=== PATIENT | female | born 1990 ===

== ENCOUNTER 2021-08-01 09:37 | Outpatient (CLI) | payer OTHER | END 2021-08-01 09:42 | disposition home or self-care (01) | LOC: RX STUDY 09:37 | PROVIDERS: ATTEND Obstetrics & Gynecology | DX: N84.0 Polyp of corpus uteri (principal); N85.00 Endometrial hyperplasia, unspecified ==

== ENCOUNTER 2022-01-29 10:30 | Day surgery (SDC) | payer OTHER ==
[2022-01-29] MEDS ORDERED: IBU600 MG PO (15:58)
[2022-01-29] MEDS ORDERED: MORGIDOX100 MG PO (15:58)
== END 2022-01-29 22:35 | disposition home or self-care (01) ==
LOC: EDBD → CIR.AMB 10:30
PROVIDERS: ATTEND Obstetrics & Gynecology
DX: O02.1 Missed abortion (principal); Z20.822 Contact with and (suspected) exposure to COVID-19; E03.9 Hypothyroidism, unspecified